=== PATIENT | female | born 1960 | race Caucasian/White ===

== ENCOUNTER 2018-04-07 10:54 | Emergency (ER) | payer OTHER ==
[~2018-04-07] VITALS: Ht 154.9 cm; Wt 54.9 kg
[2018-04-07 10:58] VITALS: BP 149/83
--- NOTE | 2018-04-07 11:08 | NUR ---
Patient ambulated to bed 3. RN evaluating patient at bedside.
--- NOTE | 2018-04-07 11:15 | NUR ---
57/ F BIB SELF, C/O RIGHT CALF PAIN X 2 WEEKS. PATIENT DESCRIBES PAIN 7/10, INTERMITTENT CRAMPING, NO SWELLING, REDNESS, OR WARMTH TO TOUCH. DENIES TRUAMA OR INJURY. AOX4, STEADY GAIT. DENIES N/V/D, BREATHING UNLABORED, DENIES SOB. PT WAS SENT HERE FROM PCP TO R/O DVT. AWAITING MD EVALUATION. PMH; HTN RX; LISINOPRIL 40
--- NOTE | 2018-04-07 11:17 | NUR ---
Dr. Patterson evaluating patient at bedside.
--- NOTE | 2018-04-07 11:24 | NUR ---
ultrasound by bedside
[2018-04-07] MEDS ORDERED: KETOROLAC 60 MG/2 ML VIAL IM ONE (12:15)
[2018-04-07 12:42] VITALS: BP 137/80
== END 2018-04-07 12:41 | disposition home or self-care (01) ==
LOC: MED 10:54
DX: M79.661 Pain in right lower leg (principal); I10 Essential (primary) hypertension; Z90.49 Acquired absence of other specified parts of digestive tract
CPT/HCPCS: 93971; 96372; 99284; J1885; Q0092

== ENCOUNTER 2023-02-02 15:51 | Emergency (ER) | payer OTHER ==
[~2023-02-02] VITALS: Ht 147.3 cm; Wt 56.7 kg
[2023-02-02 16:11] VITALS: BP 160/77; PULSE 72; RESP 18; TEMP 97.3; O2SAT 100
[2023-02-02] MEDS ORDERED: IBUPROFEN 600 MG TAB PO ONE (17:40)
[2023-02-02] MEDS ORDERED: DICL100G32 TP (18:09)
[2023-02-02 18:12] VITALS: BP 160/77; PULSE 72; RESP 18; TEMP 97.3; O2SAT 100
== END 2023-02-02 18:12 | disposition home or self-care (01) ==
LOC: MED 15:51
DX: M79.672 Pain in left foot (principal); I10 Essential (primary) hypertension; Z79.899 Other long term (current) drug therapy
CPT/HCPCS: 29515; 73630; 99283